=== PATIENT | male | born 1990 | race Caucasian/White ===

== ENCOUNTER 2016-09-03 11:42 | Emergency (ER) | payer OTHER ==
[~2016-09-03] VITALS: Ht 182.9 cm; Wt 97.5 kg
[2016-09-03 11:52] VITALS: BP 137/82
--- NOTE | 2016-09-03 13:47 | ED NECK/BACK PAIN COMPLAINT ---
History of Present Illness General Chief Complaint: Lower Extremity Problems Stated Complaint: LOWER BACK PAIN Source: patient Exam Limitations: no limitations Vital Signs & Intake/Output Vital Signs & Intake/Output Vital Signs Date Time Temp Pulse Resp B/P Pulse O2 O2 Flow FiO2 Ox Delivery Rate 09/03 1152 97.2 72 16 137/82 99 Room Air ED Intake and Output 09/04 0000 09/03 1200 Intake Total 90 Output Total Balance 90 Intake, Oral 90 Patient 215 lb Weight Allergies Coded Allergies: Penicillins (Severe, THROAT CLOSURE 09/03/16) Reconcile Medications Clonidine HCl 0.1 MG TABLET 1 TAB PO TID UNKNOWN (Reported) Desvenlafaxine Succinate (Pristiq ER) 100 MG TAB.ER.24H 1 TAB PO DAILY MENTAL HEALTH (Reported) Diazepam (Valium) 5 MG TABLET 1 TAB PO TID SPASMS Ibuprofen 800 MG TABLET 1 TAB PO TID PAIN Experiment Carbonate (Experiment Carbonate ER) 450 MG TABLET.ER 1 TAB PO DAILY MENTAL HEALTH (Reported) Experiment Carbonate (Experiment Carbonate ER) 450 MG TABLET.ER 2 TAB PO QPM MENTAL HEALTH (Reported) Omeprazole 20 MG CAPSULE.DR 1 CAP PO DAILY GI (Reported) Oxycodone HCl/Acetaminophen (Percocet 5-325 MG Tablet) 5 MG-325 MG TABLET 1-2 TAB PO Q6P PRN PAIN Prednisone (Deltasone) 20 MG TABLET 1 TAB PO TID SCIATICA Triage Note: PT STATES HIS LOWER BACK RIGHT SIDE IS HAVING PAIN AND HE IS HAVING SHOOTING PAIN DOWN HIS RIGHT LEG. PT STATES HE COULDN'T GET OUT OF HIS BED LAST NIGHT. PT STATES HE HAS HX OF BACK PAIN BUT LAST NIGHT WAS THE WORST. PT WENT TO SEE HIS CHIROPRACTOR THIS AM AND STATES IT DIDN'T FEEL LIKE IT DID ANYTHING. PT STATES WHEN HE GOT HOME HE FELL AND THE PAIN JUST GOT WORSE. Triage Nurses Notes Reviewed? yes Onset: Abrupt Duration: week(s): (1) Timing: recent history Location: lumbar spine Radiation: upper legs, lower legs Method of Injury: unknown Loss of Consciousness: no loss of consciousness HPI: 25-year-old male comes into emergency room with complaints of low back pain has been going on for one week getting progressively worse over last 2 days. Sharp throbbing pain. Continuous. Pain radiates down right leg to right knee. Denies any weakness. Denies any urinary bowel dysfunction. Denies any other associated symptoms. (JOSE ELIAS COOK) Past History Travel History Traveled to [place] past 21 day No Medical History Any Pertinent Medical History? see below for history Respiratory: asthma Musculoskeletal: BACK PAIN Psychiatric: anxiety, bipolar disease Surgical History Surgical History: non-contributory Psychosocial History What is your primary language Malawian Tobacco Use: Never used ETOH Use: occasional use Illicit Drug Use: marijuana Family History Hx Contributory? No (JOSE ELIAS COOK) Review of Systems Review of Systems Constitutional: Reports: no symptoms. Eyes: Reports: no symptoms. Ears, Nose, Throat, Mouth: Reports: no symptoms. Respiratory: Reports: no symptoms. Cardiovascular: Reports: no symptoms. Gastrointestinal/Abdominal: Reports: no symptoms. Musculoskeletal: Reports: see HPI. Skin: Reports: no symptoms. Neurological/Psychological: Reports: no symptoms. All Other Systems: Reviewed and Negative (JOSE ELIAS COOK) Physical Exam Physical Exam General Appearance: well developed/nourished, mild distress Head: atraumatic Eyes: Bilateral: normal appearance. Ears, Nose, Throat, Mouth: hearing grossly normal, moist mucous membrane Neck: normal inspection, full range of motion Respiratory: normal breath sounds Cardiovascular: regular rate/rhythm Back: normal inspection Extremities: normal range of motion Motor: Deficit L4 Right: No Deficit L4 Left: No Deficit L5 Right: No Deficit L5 Left: No Deficit S1 Right: Yes Deficit S1 Right: No Neurologic/Psych: awake, alert, oriented x 3, normal mood/affect Skin: intact, normal color, warm/dry (JOSE ELIAS COOK) Progress Differential Diagnosis: AAA, aortic dissection, C spine injury, carotid dissection, cauda equina syn, herniated disc, myofascial strain, pyelo/UTI, sciatica, spinal cord inj, thoracic outlet syn, T/L spine injury, ureterolithiasis Plan of Care: Orders Procedure Date/time Status XRY-LUMBOSACRAL SPINE 4 VIEWS 09/03 1312 Active Comments: 09/03/2016 3:09:11 PM Patient's pain is all reproducible and lower back. Pain is worse with range of motion. . No urinary bowel dysfunction. No genital numbness. No weakness in the lower extremity. Normal dorsiflexion of great toe. Gross sensation intact. No saddle paresthesia. Considered things like cauda equina have a do not feel that patient's symptoms at this point in time are consistent with this diagnosis. Patient reevaluated multiple times. Patient has no other symptoms that could be attributing to back pain. No abdominal pain, shortness of breath , chest pain. Patient is to follow-up with primary care doctor for recheck. If symptoms persist patient should be considered for an MRI of the lower back. Patient is to return immediately if any nausea vomiting, fever, weakness in the legs, urinary bowel dysfunction, abdominal pain, chest pain, shortness of breath. No weight loss. No night sweats. Pain is consistent with musculoskeletal pain due to the patient's symptoms mentioned above. (ALISIA AGUILAR,JOSE ELIAS) Departure Departure Disposition: HOME OR SELF CARE Condition: Stable Clinical Impression Primary Impression: Sciatica Referrals: PATIENT HAS NO PRIMARY CARE DR (PCP/Family) Additional Instructions: Take Percocet, Valium, ibuprofen, and prednisone as prescribed. Follow-up with your primary care doctor for outpatient MRI if symptoms don't improve. Return if any other concerns worsening symptoms. Return if any urinary bowel dysfunction. Please go over all results of today's visit with your primary care doctor. Contact your primary care doctor to let them know you were here in the emergency room. There may be nonspecific findings which may not be related to your visit today here in the emergency room but may require further evaluation and chronic monitoring by your primary care doctor. If you had a laceration today the chance of foreign body always remains. You should follow-up with your primary care doctor for recheck in 3-5 days for a wound check. If you had an x-ray done there is a chance that a fracture could have been missed on initial read and you should follow-up with your primary care doctor for repeat x-rays if symptoms persist. If your blood pressure was elevated here in the emergency room please have rechecked by her primary care doctor within the next 48 hours by your primary care doctor. If you were prescribed a narcotic here in the emergency room or any type of controlled substances you're not allowed to drive while taking this medication or operate any type of heavy machinery. Narcotics can make you feel lightheaded dizziness nausea and can cause constipation. You may need to warehouse order picker a stool softener. Thank you for choosing [facility] emergency room. Please return to the emergency room immediately if you have any other concerns worsening of symptoms. Departure Forms: Customer Survey General Discharge Information Prescriptions: Current Visit Scripts Diazepam (Valium) 1 TAB PO TID #20 TAB Oxycodone HCl/Acetaminophen (Percocet 5-325 MG Tablet) 1-2 TAB PO Q6P PRN PAIN #20 TAB Ibuprofen 1 TAB PO TID #30 TAB Prednisone (Deltasone) 1 TAB PO TID #12 MG (JOSE ELIAS COOK) PA/INSURANCE BILLING CLERK Co-Sign Statement Statement: ED Attending supervision documentation- [] I saw and evaluated the patient. I have also reviewed all the pertinent lab results and diagnostic results. I agree with the findings and the plan of care as documented in the PA's/INSURANCE BILLING CLERK's documentation. [X] I have reviewed the ED Record and agree with the PA's/INSURANCE BILLING CLERK's documentation. [] Additions or exceptions (if any) to the PAs/INSURANCE BILLING CLERK's note and plan are summarized below: [] (AURY COLUNGA,JOSEPH)
[2016-09-03] MEDS ORDERED: CLONIDINE HCL0.1 MG PO (14:10)
[2016-09-03] MEDS ORDERED: PRISTIQ ER100 MG PO (14:10)
[2016-09-03] MEDS ORDERED: LITHIUM CARBON450 M1 PO ×2 (14:10)
[2016-09-03] MEDS ORDERED: OMEPRAZOLE20 M2 PO (14:11)
--- NOTE | 2016-09-03 14:36 | RADIOLOGY REPORT ---
EXAMINATION: XR LUMBOSACRAL SPINE CLINICAL INFORMATION: Low back pain COMPARISON: None. TECHNIQUE: Lumbosacral spine, 4 views FINDINGS: The lumbar vertebra have normal density, height and alignment. The disc spaces are well-preserved and facet joints are unremarkable. There is no evidence of spondylolysis, spondylolisthesis or vertebral compression fracture. The sacrum and sacroiliac joints are intact. IMPRESSION: No acute fracture or malalignment in the lumbar spine.
[2016-09-03] MEDS ORDERED: VALIUM5 M2 PO (14:38)
[2016-09-03] MEDS ORDERED: IBUPROFEN800 M1 PO (14:38)
[2016-09-03] MEDS ORDERED: DELTASONE20 MG PO (14:38)
[2016-09-03] MEDS ORDERED: PERCOCET 5-3251 EACH PO (14:38)
== END 2016-09-03 14:46 ==
LOC: ERH 11:42
DX: M54.31 Sciatica, right side (principal)
CPT/HCPCS: 72110; 96372; J1885; J3360